=== PATIENT | male | born 1940 ===

== ENCOUNTER 2020-02-02 08:13 | Inpatient (IN) ==
[2020-02-02] MEDS ORDERED: Magnesium Hydroxide LIQ 30 ML UDC PO PRN (13:10)
[2020-02-02] MEDS ORDERED: Dextrose 50% Syringe 50 ml 25 GM/50 ML SYRINGE IV PUSH PRN (13:24)
[2020-02-02] MEDS: Carbidopa/Levodop 25/100 MG TAB PO SCH ×2 (13:38→20:20)
[2020-02-02] MEDS: Senna TAB 8.6 mg TAB PO SCH (20:21)
[2020-02-02] MEDS: Heparin 5000 UNITS/ML 1 mL VIAL SUBCUT SCH (20:24)
[2020-02-03 07:48] LABS: Hematocrit 37 % (42-52); Hemoglobin 12.6 g/dL (14.0-18.0); Mean Corpuscular HGB Conc 34 g/dL (31-36); Mean Corpuscular Hemoglobin 32 pg (27-31); Mean Corpuscular Volume 93 fL (80-94); Mean Platelet Volume 10.6 fL (7.4-10.4); Platelet Count 105 10^3/uL (150-450); Red Blood Count 3.98 10^6 /uL (4.18-5.48); Red Cell Distribution Width 16 % (10-15); White Blood Count 5.7 10^3/uL (3.5-10.8)
[2020-02-03 08:00] LABS: Albumin 3.8 g/dL (3.2-5.2); Albumin/Globulin Ratio 1.5 (1-3); BUN/Creatinine Ratio 20.3 (8-20); Calcium 8.6 mg/dL (8.6-10.3); EGFR African American 160.3 (>60); EGFR Non-African American 132.5 (>60); Globulin 2.6 g/dL (2-4); Potassium 3.9 mmol/L (3.5-5.0); Total Bilirubin 0.5 mg/dL (0.2-1.0); Total Protein 6.4 g/dL (6.4-8.9)
[2020-02-03 08:53] LABS: ABS Lymphocytes 1.4 10^3/ul (1.0-4.8); ABS Monocytes 2.2 10^3/ul (0-0.8); ABS Neutrophils 2.2 10^3/ul (1.5-7.7); Eosinophil % 0.2 %; Lymphocyte % 24.5 %; Nucleated Red Blood Cells % 0.1
[2020-02-03] MEDS: Carbidopa/Levodop 25/100 MG TAB PO SCH ×3 (09:58→21:09)
[2020-02-03] MEDS: Heparin 5000 UNITS/ML 1 mL VIAL SUBCUT SCH ×2 (09:59→21:12)
[2020-02-03] MEDS: Cholecalciferol (VIT D3) 400 units TAB PO SCH (09:59)
[2020-02-03] MEDS: Senna TAB 8.6 mg TAB PO SCH (21:10)
[2020-02-04] MEDS: Carbidopa/Levodop 25/100 MG TAB PO SCH ×3 (09:49→21:25)
[2020-02-04] MEDS: Cholecalciferol (VIT D3) 400 units TAB PO SCH (09:50)
[2020-02-04] MEDS: Heparin 5000 UNITS/ML 1 mL VIAL SUBCUT SCH ×2 (09:50→21:25)
[2020-02-04] MEDS: Senna TAB 8.6 mg TAB PO SCH (21:24)
[2020-02-05] MEDS: Cholecalciferol (VIT D3) 400 units TAB PO SCH (08:41)
[2020-02-05] MEDS: Carbidopa/Levodop 25/100 MG TAB PO SCH ×3 (08:41→22:17)
[2020-02-05] MEDS: Heparin 5000 UNITS/ML 1 mL VIAL SUBCUT SCH ×2 (08:42→22:18)
[2020-02-05] MEDS: Senna TAB 8.6 mg TAB PO SCH (22:17)
[2020-02-06] MEDS: Cholecalciferol (VIT D3) 400 units TAB PO SCH (08:34)
[2020-02-06] MEDS: Carbidopa/Levodop 25/100 MG TAB PO SCH ×3 (08:34→21:29)
[2020-02-06] MEDS: Heparin 5000 UNITS/ML 1 mL VIAL SUBCUT SCH ×2 (08:35→21:28)
[2020-02-06] MEDS: Senna TAB 8.6 mg TAB PO SCH (21:29)
[2020-02-07] MEDS: Cholecalciferol (VIT D3) 400 units TAB PO SCH (08:40)
[2020-02-07] MEDS: Heparin 5000 UNITS/ML 1 mL VIAL SUBCUT SCH ×2 (08:42→20:25)
[2020-02-07] MEDS: Carbidopa/Levodop 25/100 MG TAB PO SCH ×3 (08:42→20:25)
[2020-02-07] MEDS: Senna TAB 8.6 mg TAB PO SCH (20:25)
[2020-02-08] MEDS: Heparin 5000 UNITS/ML 1 mL VIAL SUBCUT SCH ×2 (09:24→20:04)
[2020-02-08] MEDS: Cholecalciferol (VIT D3) 400 units TAB PO SCH (09:24)
[2020-02-08] MEDS: Carbidopa/Levodop 25/100 MG TAB PO SCH ×3 (09:24→20:04)
[2020-02-08] MEDS: Senna TAB 8.6 mg TAB PO SCH (19:58)
[2020-02-09] MEDS: Carbidopa/Levodop 25/100 MG TAB PO SCH ×3 (11:05→21:40)
[2020-02-09] MEDS: Heparin 5000 UNITS/ML 1 mL VIAL SUBCUT SCH ×2 (11:05→21:42)
[2020-02-09] MEDS: Cholecalciferol (VIT D3) 400 units TAB PO SCH (11:05)
[2020-02-09] MEDS: Senna TAB 8.6 mg TAB PO SCH (21:41)
[2020-02-10 04:37] LABS: Hematocrit 37 % (42-52); Hemoglobin 12.4 g/dL (14.0-18.0); Mean Corpuscular HGB Conc 34 g/dL (31-36); Mean Corpuscular Hemoglobin 32 pg (27-31); Mean Corpuscular Volume 93 fL (80-94); Mean Platelet Volume 10.3 fL (7.4-10.4); Platelet Count 133 10^3/uL (150-450); Red Blood Count 3.93 10^6 /uL (4.18-5.48); Red Cell Distribution Width 17 % (10-15); White Blood Count 7.5 10^3/uL (3.5-10.8)
[2020-02-10 04:53] LABS: Albumin 3.8 g/dL (3.2-5.2); Albumin/Globulin Ratio 1.4 (1-3); BUN/Creatinine Ratio 23.9 (8-20); Calcium 8.9 mg/dL (8.6-10.3); EGFR African American 138.5 (>60); EGFR Non-African American 114.4 (>60); Globulin 2.7 g/dL (2-4); Potassium 4.2 mmol/L (3.5-5.0); Total Bilirubin 0.5 mg/dL (0.2-1.0); Total Protein 6.5 g/dL (6.4-8.9)
[2020-02-10 07:17] LABS: ABS Monocytes 2.8 10^3/ul (0-0.8); ABS Neutrophils 2.7 10^3/ul (1.5-7.7); Eosinophil % 0.2 %; Lymphocyte % 26.2 %
[2020-02-10] MEDS: Carbidopa/Levodop 25/100 MG TAB PO SCH ×3 (09:22→20:12)
[2020-02-10] MEDS: Cholecalciferol (VIT D3) 400 units TAB PO SCH (09:23)
[2020-02-10] MEDS: Heparin 5000 UNITS/ML 1 mL VIAL SUBCUT SCH ×2 (09:26→20:15)
[2020-02-10] MEDS: CMC:Diclofenac 1% GEL (NF) 100 GM TUBE TOPICAL SCH ×3 (12:35→20:17)
[2020-02-10] MEDS: Senna TAB 8.6 mg TAB PO SCH (20:12)
[2020-02-11] MEDS: CMC:Diclofenac 1% GEL (NF) 100 GM TUBE TOPICAL SCH ×4 (08:53→21:33)
[2020-02-11] MEDS: Carbidopa/Levodop 25/100 MG TAB PO SCH ×3 (08:53→21:26)
[2020-02-11] MEDS: Cholecalciferol (VIT D3) 400 units TAB PO SCH (08:53)
[2020-02-11] MEDS: Heparin 5000 UNITS/ML 1 mL VIAL SUBCUT SCH ×2 (08:54→21:27)
[2020-02-11] MEDS: Senna TAB 8.6 mg TAB PO SCH (21:26)
[2020-02-12] MEDS: CMC:Diclofenac 1% GEL (NF) 100 GM TUBE TOPICAL SCH ×4 (09:06→20:55)
[2020-02-12] MEDS: Cholecalciferol (VIT D3) 400 units TAB PO SCH (09:06)
[2020-02-12] MEDS: Carbidopa/Levodop 25/100 MG TAB PO SCH ×3 (09:06→20:54)
[2020-02-12] MEDS: Heparin 5000 UNITS/ML 1 mL VIAL SUBCUT SCH ×2 (09:07→20:55)
[2020-02-12] MEDS: Senna TAB 8.6 mg TAB PO SCH (20:54)
[2020-02-13] MEDS: Cholecalciferol (VIT D3) 400 units TAB PO SCH (08:41)
[2020-02-13] MEDS: Carbidopa/Levodop 25/100 MG TAB PO SCH ×3 (08:42→20:17)
[2020-02-13] MEDS: Heparin 5000 UNITS/ML 1 mL VIAL SUBCUT SCH ×2 (08:44→20:23)
[2020-02-13] MEDS: CMC:Diclofenac 1% GEL (NF) 100 GM TUBE TOPICAL SCH ×4 (08:47→20:23)
[2020-02-13] MEDS: Senna TAB 8.6 mg TAB PO SCH (20:16)
[2020-02-14] MEDS: Carbidopa/Levodop 25/100 MG TAB PO SCH ×4 (08:15→20:35)
[2020-02-14] MEDS: Cholecalciferol (VIT D3) 400 units TAB PO SCH (08:15)
[2020-02-14] MEDS: Heparin 5000 UNITS/ML 1 mL VIAL SUBCUT SCH ×2 (08:15→20:36)
[2020-02-14] MEDS: CMC:Diclofenac 1% GEL (NF) 100 GM TUBE TOPICAL SCH ×4 (08:15→20:35)
[2020-02-14] MEDS: Senna TAB 8.6 mg TAB PO SCH (20:36)
[2020-02-15] MEDS: Cholecalciferol (VIT D3) 400 units TAB PO SCH (07:31)
[2020-02-15] MEDS: Carbidopa/Levodop 25/100 MG TAB PO SCH ×3 (07:31→21:05)
[2020-02-15] MEDS: Heparin 5000 UNITS/ML 1 mL VIAL SUBCUT SCH ×2 (07:32→21:05)
[2020-02-15] MEDS: CMC:Diclofenac 1% GEL (NF) 100 GM TUBE TOPICAL SCH ×4 (09:30→21:05)
[2020-02-15] MEDS: Senna TAB 8.6 mg TAB PO SCH (21:06)
[2020-02-16] MEDS: CMC:Diclofenac 1% GEL (NF) 100 GM TUBE TOPICAL SCH ×4 (10:01→20:48)
[2020-02-16] MEDS: Carbidopa/Levodop 25/100 MG TAB PO SCH ×3 (10:01→20:47)
[2020-02-16] MEDS: Cholecalciferol (VIT D3) 400 units TAB PO SCH (10:01)
[2020-02-16] MEDS: Heparin 5000 UNITS/ML 1 mL VIAL SUBCUT SCH ×2 (10:02→20:48)
[2020-02-16] MEDS: Senna TAB 8.6 mg TAB PO SCH (20:47)
[2020-02-17 05:20] LABS: Hematocrit 35 % (42-52); Hemoglobin 11.9 g/dL (14.0-18.0); Mean Corpuscular HGB Conc 34 g/dL (31-36); Mean Corpuscular Hemoglobin 32 pg (27-31); Mean Corpuscular Volume 94 fL (80-94); Mean Platelet Volume 10.6 fL (7.4-10.4); Platelet Count 129 10^3/uL (150-450); Red Blood Count 3.78 10^6 /uL (4.18-5.48); Red Cell Distribution Width 17 % (10-15); White Blood Count 6.2 10^3/uL (3.5-10.8)
[2020-02-17 05:35] LABS: Albumin 3.9 g/dL (3.2-5.2); Albumin/Globulin Ratio 1.5 (1-3); BUN/Creatinine Ratio 25.4 (8-20); Calcium 8.9 mg/dL (8.6-10.3); EGFR African American 129.5 (>60); Globulin 2.6 g/dL (2-4); Potassium 4.2 mmol/L (3.5-5.0); Total Bilirubin 0.5 mg/dL (0.2-1.0); Total Protein 6.5 g/dL (6.4-8.9)
[2020-02-17 06:42] VITALS: BP 139/72
[2020-02-17 09:16] LABS: ABS Lymphocytes 1.8 10^3/ul (1.0-4.8); ABS Monocytes 2.5 10^3/ul (0-0.8); ABS Neutrophils 1.9 10^3/ul (1.5-7.7); Eosinophil % 0.2 %; Lymphocyte % 28.9 %
[2020-02-17] MEDS: Cholecalciferol (VIT D3) 400 units TAB PO SCH (09:29)
[2020-02-17] MEDS: Carbidopa/Levodop 25/100 MG TAB PO SCH (09:29)
[2020-02-17] MEDS: Heparin 5000 UNITS/ML 1 mL VIAL SUBCUT SCH (09:30)
[2020-02-17] MEDS: CMC:Diclofenac 1% GEL (NF) 100 GM TUBE TOPICAL SCH (09:34)
== END 2020-02-17 12:48 | disposition home health service (06) | DRG 57 ==
LOC: PMRU 11:22
PROVIDERS: ADMIT Physical Medicine & Rehabilitation; ATTEND Physical Medicine & Rehabilitation